=== PATIENT | female | born 1945 ===

== ENCOUNTER 2017-03-28 10:02 | Day surgery (SDC) | payer MEDICARE ==
[2017-03-23 09:02] VITALS: BMI 33.5
[2017-03-23 10:06] VITALS: RESP 18
[2017-03-28] MEDS ORDERED: Lactated Ringer's 1,000 ML IV ONE (11:09)
[2017-03-28] MEDS ORDERED: Propofol 10 mg/ml Inj (20 ML) ONE ×2 (11:36→11:53)
[2017-03-28] MEDS ORDERED: Midazolam 2 MG/2 ML VIAL ONE (11:37)
[2017-03-28] MEDS ORDERED: Succinylcholine 200 mg/10 ml Inj IV ONE (11:56)
[2017-03-28] MEDS ORDERED: cefTRIAXone (Rocephin) 1 gm Inj IVPB ONE (12:00)
[2017-03-28] MEDS ORDERED: cefTRIAXone IV 1 gm in Dextros 50 ML IVPB ONE (12:16)
[2017-03-28] MEDS ORDERED: HYDROmorphone 0.5 mg/0.5 ml ISec IVP PRN (12:36)
[2017-03-28] MEDS ORDERED: Lactated Ringer's 1,000 ML IV SCH (12:45)
[2017-03-28 15:12] VITALS: BP 156/92; PULSE 91; TEMP 97.8; O2SAT 96
--- NOTE | 2017-04-12 22:30 | DS ---
This patient came in for elective cystoscopy with bladder biopsy for an identified bladder lesion. Postoperatively, the patient was stable. She was able to void and she was discharged home on the same day and an appointment was given for her to follow up in the office within 1 week to identify pathology of the biopsy specimen. Juan A Galvan MD
--- NOTE | 2017-04-13 08:59 | OP ---
PROCEDURE DATE: 03/28/2017 PREOPERATIVE DIAGNOSIS: Bladder lesion. POSTOPERATIVE DIAGNOSIS: Bladder lesion. PROCEDURE PERFORMED: Cystoscopy with bladder biopsy and fulguration. DESCRIPTION OF PROCEDURE: The patient was placed on the operating room table in the dorsal lithotomy position and given general anesthesia. The area of the groin was draped and prepped in the sterile manner. Using a #22 cystoscope, I entered into the bladder atraumatically. I evaluated the bladder. I identified a lesion in the area of the bladder trigone and used a cold cup biopsy to remove biopsies of this area of suspicion. Once the biopsies were secured and sent for specimen analysis, I then went back with a Bugbee cautery to cauterize the base of the biopsied area. Once this was done, the patient had instrumentation removed and was taken from the operating room in good condition. Juan A Galvan MD
== END 2017-03-28 15:40 | disposition home or self-care (01) ==
LOC: H.OPSURG 10:02
PROVIDERS: ATTEND Urology
DX: R31.9 Hematuria, unspecified (principal); M19.90 Unspecified osteoarthritis, unspecified site; K21.9 Gastro-esophageal reflux disease without esophagitis; R42 Dizziness and giddiness
CPT/HCPCS: 52224; 88305; J0330; J0696; J2001; J2250; J2704; J3010; J7120